=== PATIENT | female | born 1955 | race Two or more races ===

== ENCOUNTER 2019-12-14 11:23 | Day surgery (SDC) | payer OTHER ==
[~2019-12-14] VITALS: Ht 152.4 cm; Wt 70.9 kg
[~2019-12-14 11:23] MED LIST: SODIUM CHLORIDE 0.9% 1,000 ML ONE
[2019-12-14] MEDS ORDERED: PROPOFOL 1% 20 ML VIAL IVP ONE (11:24)
[2019-12-14] MEDS ORDERED: LIDOCAINE/PF 2% 5 ML VIAL INJ ONE (11:24)
[2019-12-14] MEDS ORDERED: FURO40 PO (12:19)
[2019-12-14] MEDS ORDERED: SIMV-260 PO (12:19)
[2019-12-14] MEDS ORDERED: FLUT1BLS IH (12:19)
[2019-12-14] MEDS ORDERED: FERR-82 PO (12:19)
[2019-12-14] MEDS ORDERED: MONT10TA26 PO (12:19)
[2019-12-14] MEDS ORDERED: AMLO-257 PO (12:19)
[2019-12-14] MEDS ORDERED: ASPI-1111 PO (12:19)
[2019-12-14] MEDS ORDERED: ALBU8HFA IH (12:19)
[2019-12-14] MEDS ORDERED: INSU200I4 SQ (12:19)
[2019-12-14] MEDS ORDERED: GABA-1181 PO (12:19)
[2019-12-14] MEDS ORDERED: FLUT16H NASAL (12:19)
[2019-12-14] MEDS ORDERED: POTA10CA44 PO (12:19)
[2019-12-14] MEDS ORDERED: METO25 PO (12:19)
[2019-12-14 12:41] LABS: GLUCOMETER DEV NAME(LOC) SDS.; GLUCOSE,POINT OF CARE 108 MG/DL (70-110)
[2019-12-14] MEDS ORDERED: SODIUM CHLORIDE 0.9% 1,000 ML IV ONE (13:00)
== END 2019-12-14 15:00 | disposition home or self-care (01) ==
LOC: SURGERY 11:23
PROVIDERS: ATTEND Internal Medicine Gastroenterology
DX: K29.70 Gastritis, unspecified, without bleeding (principal); K76.6 Portal hypertension; K31.89 Other diseases of stomach and duodenum; E11.9 Type 2 diabetes mellitus without complications; I10 Essential (primary) hypertension; I25.10 Atherosclerotic heart disease of native coronary artery without angina pectoris; J44.9 Chronic obstructive pulmonary disease, unspecified; K21.9 Gastro-esophageal reflux disease without esophagitis; E78.2 Mixed hyperlipidemia; Z95.1 Presence of aortocoronary bypass graft; Z79.82 Long term (current) use of aspirin; Z79.899 Other long term (current) drug therapy; D50.9 Iron deficiency anemia, unspecified; Z98.890 Other specified postprocedural states; E78.00 Pure hypercholesterolemia, unspecified; Z96.642 Presence of left artificial hip joint; Z98.41 Cataract extraction status, right eye; Z98.42 Cataract extraction status, left eye
CPT/HCPCS: 43239; 82962; 87426; 93005; C1769; J2704; J3490; J7030; 88305; 88312; 88313

== ENCOUNTER → 2019-12-18 | Day surgery (SDC) | payer OTHER ==
[~2019-12-18] VITALS: Ht 152.4 cm; Wt 70.9 kg
[~2019-12-18] MED LIST changes: +ALBU8HFA IH; +AMLO-257 PO; +ASPI-1111 PO; +FERR-82 PO; +FLUT16H NASAL; +FLUT1BLS IH; +FURO40 PO; +FentaNYL CITRATE-PF 100 MCG/2 ML VIAL ONE; +GABA-1181 PO; +INSU200I4 SQ; +METO25 PO; +MIDAZOLAM HCL 2 MG/2 ML VIAL ONE; +MONT10TA26 PO; +MethylPREDNISolone SOD SUCC 125 MG/2 ML VIAL IVP ONE; +OXYGEN THERAPY IH SCH; +POTA10CA44 PO; +SIMV-260 PO; +SODIUM CHLORIDE 0.9% 1,000 ML IV ONE
[2019-12-18 07:39] LABS: GLUCOMETER DEV NAME(LOC) SDS.; GLUCOSE,POINT OF CARE 123 MG/DL (70-110)
== END | disposition home or self-care (01) ==
LOC: SURGERY 06:28
PROVIDERS: ATTEND Internal Medicine Critical Care Medicine
DX: J38.4 Edema of larynx (principal); B37.0 Candidal stomatitis; E78.00 Pure hypercholesterolemia, unspecified; Z98.890 Other specified postprocedural states; Z98.41 Cataract extraction status, right eye; Z98.42 Cataract extraction status, left eye; Z96.642 Presence of left artificial hip joint
CPT/HCPCS: 31623; 31624; 71045; 82962; 87015; 87070; 87077; 87101; 87186; 87205; 87206; 87220; 88108; 88312; J2250; J2930; J3010; J7030

== ENCOUNTER 2021-03-07 06:24 | Day surgery (SDC) | payer OTHER ==
[2021-03-06 11:02] LABS: COVID AG,FIA SOURCE NASOPHARYNGEAL
[~2021-03-07] VITALS: Ht 152.4 cm; Wt 60.9 kg
[~2021-03-07 06:24] MED LIST changes: +ALEN70TA65 PO; -ASPI-1111 PO; +ASPI-1444 PO; +CALC-789 PO; +DIPH50CA35 PO; +DULO30CA89 PO; +FAMO20 PO; -FentaNYL CITRATE-PF 100 MCG/2 ML VIAL ONE; +METF-1211 PO; -MIDAZOLAM HCL 2 MG/2 ML VIAL ONE; +MONT-40 PO; -MONT10TA26 PO; -MethylPREDNISolone SOD SUCC 125 MG/2 ML VIAL IVP ONE; -OXYGEN THERAPY IH SCH; +RIVA15TA PO; +SACU1TAB PO; -SODIUM CHLORIDE 0.9% 1,000 ML ONE; +SPIR50TA27 PO
[2021-03-07] MEDS ORDERED: SODIUM CHLORIDE 0.9% 1,000 ML ONE (07:06)
[2021-03-07 07:35] LABS: GLUCOMETER DEV NAME(LOC) SDS.; GLUCOSE,POINT OF CARE 166 MG/DL (70-110)
[2021-03-07] MEDS ORDERED: FentaNYL CITRATE PF 100 MCG/2 ML VIAL ONE (08:15)
[2021-03-07] MEDS ORDERED: MIDAZOLAM HCL 5 MG/ML VIAL ONE (08:15)
[2021-03-07] MEDS ORDERED: MethylPREDNISolone SOD SUCC 125 MG/2 ML VIAL IVP ONE (09:15)
[2021-03-07] MEDS ORDERED: MethylPREDNISolone SOD SUCC 125 MG/2 ML VIAL ONE (09:38)
[2021-03-07] MEDS ORDERED: ALBUTEROL SULFATE 2.5 MG/0.5 ML NEB SOLUTION NEB ONE (12:00)
[2021-03-07] MEDS ORDERED: BENZOCAINE 20% 50 MCG/SPRAY 57 GM TP ONE (12:00)
[2021-03-07] MEDS ORDERED: LIDOCAINE 2% 30 ML JELLY TP ONE (12:00)
[2021-03-07] MEDS ORDERED: OXYGEN THERAPY IH SCH (20:00)
== END 2021-03-07 12:40 | disposition home or self-care (01) ==
LOC: SURGERY 06:24
PROVIDERS: ATTEND Internal Medicine Critical Care Medicine
DX: J38.4 Edema of larynx (principal); B37.0 Candidal stomatitis; I10 Essential (primary) hypertension; Z95.5 Presence of coronary angioplasty implant and graft; Z98.890 Other specified postprocedural states; Z96.642 Presence of left artificial hip joint; Z98.42 Cataract extraction status, left eye; Z98.41 Cataract extraction status, right eye; E11.9 Type 2 diabetes mellitus without complications; Z79.899 Other long term (current) drug therapy
CPT/HCPCS: 31623; 31624; 71045; 71250; 82962; 87015; 87070; 87101; 87206; 87220; 87426; 88112; 88184; 88185; 88312; C9803; J2250; J2930; J3010; J7030; J7613

== ENCOUNTER 2021-06-02 09:30 | Day surgery (SDC) | payer OTHER ==
[2021-05-30 15:06] LABS: COVID AG,FIA SOURCE NASOPHARYNGEAL
[~2021-06-02] VITALS: Ht 152.4 cm; Wt 64.1 kg
[~2021-06-02 09:30] MED LIST changes: +SODIUM CHLORIDE 0.9% 1,000 ML ONE
[2021-06-02 10:21] LABS: GLUCOMETER DEV NAME(LOC) SDS.; GLUCOSE,POINT OF CARE 196 MG/DL (70-110)
[2021-06-02] MEDS ORDERED: PROPOFOL 1% 20 ML VIAL IVP ONE (12:00)
== END 2021-06-02 12:55 | disposition home or self-care (01) ==
LOC: SURGERY 09:30
PROVIDERS: ATTEND Student in an Organized Health Care Education/Training Program
DX: K74.60 Unspecified cirrhosis of liver (principal); I11.0 Hypertensive heart disease with heart failure; J45.909 Unspecified asthma, uncomplicated; I42.9 Cardiomyopathy, unspecified; I50.9 Heart failure, unspecified; Z79.899 Other long term (current) drug therapy; Z98.890 Other specified postprocedural states; Z95.5 Presence of coronary angioplasty implant and graft
CPT/HCPCS: 43235; 82962; 87426; C9803; J2704; J7030